=== PATIENT | male | born 1970 | race Two or more races ===

== ENCOUNTER 2019-06-15 10:56 | Outpatient (CLI) | payer OTHER | END 2019-06-15 11:02 | disposition home or self-care (01) | LOC: LAB 10:56 | DX: R05 Cough (principal); J11.1 Influenza due to unidentified influenza virus with other respiratory manifestations ==

== ENCOUNTER 2024-10-19 08:17 | Outpatient (CLI) | payer OTHER | END 2024-10-19 08:26 | disposition home or self-care (01) | LOC: SONOGRAMA 08:17 | PROVIDERS: ATTEND Pathology Anatomic Pathology & Clinical Pathology | DX: D34 Benign neoplasm of thyroid gland (principal); E06.3 Autoimmune thyroiditis; E04.8 Other specified nontoxic goiter ==